=== PATIENT | female | born 1970 | race Caucasian/White ===

== ENCOUNTER 2016-07-15 20:56 | Emergency (ER) | payer OTHER ==
[~2016-07-15] VITALS: Ht 172.7 cm; Wt 71.4 kg
[~2016-07-15 20:56] MED LIST: ALBUTEROL17 G1 IH; GREEN TEA1 CAPSULE PO; HYDROCHLOROTHIA25 MG PO; METAMUCIL1 EACH PO; MOBIC7.5 MG PO; MULTIVITAMIN1 EAC1 PO; NAPROXEN500 MG PO; NEXIUM40 MG PO; PREDNISONE20 MG PO; PRENATAL1 EACH PO; PULMICORT FLEX90 MCG IH; RANITIDINE PO; REGLAN10 MG PO; VENTOLIN HFA18 GM IH; WELLBUTRIN XL150 MG PO; [UNRECOGNIZED DRUG - OTHER] PO
[2016-07-15 23:56] VITALS: BP 138/85
== END 2016-07-15 23:59 | disposition home or self-care (01) ==
LOC: EME 20:56 → RME 23:31
DX: R06.02 Shortness of breath (principal); F17.200 Nicotine dependence, unspecified, uncomplicated; J45.909 Unspecified asthma, uncomplicated; Z91.09 Other allergy status, other than to drugs and biological substances; Z91.030 Bee allergy status; Z88.0 Allergy status to penicillin
CPT/HCPCS: 94640; 99281; 99284; J7512

== ENCOUNTER 2016-11-26 22:28 | Emergency (ER) | payer OTHER | END 2016-11-26 22:45 | disposition left against medical advice (07) | LOC: EME 22:28 | DX: Z04.1 Encounter for examination and observation following transport accident (principal); Z53.21 Procedure and treatment not carried out due to patient leaving prior to being seen by health care provider ==

== ENCOUNTER 2017-11-17 07:20 | Emergency (ER) | payer OTHER ==
[~2017-11-17] VITALS: Ht 172.7 cm; Wt 73.0 kg
[2017-11-17] MEDS ORDERED: MOTRIN800 MG PO (09:40)
[2017-11-17 09:48] VITALS: BP 127/85
== END 2017-11-17 09:49 | disposition home or self-care (01) ==
LOC: EME 07:20
DX: S13.9XXA Sprain of joints and ligaments of unspecified parts of neck, initial encounter (principal); S30.0XXA Contusion of lower back and pelvis, initial encounter; V49.50XA Passenger injured in collision with unspecified motor vehicles in traffic accident, initial encounter; Y92.410 Unspecified street and highway as the place of occurrence of the external cause; Z88.0 Allergy status to penicillin; F17.200 Nicotine dependence, unspecified, uncomplicated; Z90.710 Acquired absence of both cervix and uterus
CPT/HCPCS: 72040; 72100; 99281; 99284